=== PATIENT | male | born 1990 | race Caucasian/White ===

== ENCOUNTER 2021-08-18 20:04 | Emergency (ER) | payer BC ==
[2021-08-18 21:02] LABS: HEMOGLOBIN 14.2 gm/dl (14.0-17.5); RED BLOOD COUNT 5.05 M/UL (4.20-5.50); WHITE BLOOD COUNT 7.3 K/UL (4.5-11.0)
[2021-08-18 21:21] LABS: BUN/CREATININE RATIO 18 (0-10)
[2021-08-19] MEDS ORDERED: ASPIRIN CHEWABL81 MG PO ×2 (00:40→02:03)
[2021-08-19] MEDS ORDERED: LOPRESSOR 25 MG25 MG PO ×2 (00:40→02:03)
== END 2021-08-19 01:50 | disposition home or self-care (01) ==
LOC: ER1 20:04 → EDBD 20:04 → ER1 08-19 01:50
PROVIDERS: Emergency Medicine
DX: R77.8 Other specified abnormalities of plasma proteins (principal); I10 Essential (primary) hypertension
CPT/HCPCS: 71045; 80053; 82550; 82553; 84484; 85025; 93005; 93242; 99285; Q9967